=== PATIENT | female | born 1990 ===

== ENCOUNTER 2023-06-23 19:39 | Emergency (ER) | payer MEDICAID, SELFPAY ==
[2023-06-23 19:48] VITALS: BP 108/70; PULSE 80; RESP 20; TEMP 36.3; O2SAT 98; BMI 33.2
[2023-06-23 20:23] VITALS: BP 114/70; PULSE 84; RESP 18; O2SAT 99
--- NOTE | 2023-06-23 20:29 | ED.GENADULT ---
HPI - General Adult General Chief complaint: Abdominal Pain Stated complaint: Abdominal pain, nausea Time Seen by Provider: 06/23/23 20:25 History of Present Illness HPI narrative: Pt aox4, ABCs intact. Patient c/o generalized malaise, chills , and abdominal pain that is intermittent but worsening in severity over the past couple of days. Patient states that she has lupus and recently moved here and has not been seen by a doctor in a while as her lupus was in remission. 32-year-old woman presenting to the emergency department with complaint of just not feeling very good. She is not short of breath. Not been coughing. Has been feeling chilled but admits that has been feeling intermittently chilled since she moved to [place] from [facility] in January or so of this year. Underlying history of lupus and is worried that this might be flaring. She has not yet established primary care. She has not received treatment in any form for lupus over the last year. Her treatments had been varied. She has not been having any joint pain. No rashes. No diarrhea. She is experiencing some nausea though. Was a little lightheaded earlier today without palpitations. No dysuria frequency urgency. Having a little heartburn. She would appreciate IV fluids. Related Data Previous Rx's Medication Instructions Recorded omeprazole 40 mg capsule,delayed 40 mg PO DAILY #30 caps 06/23/23 release ondansetron 4 mg disintegrating 4 mg PO Q4-6H PRN nausea and 06/24/23 tablet vomiting #15 tabs Allergies Allergy/AdvReac Type Severity Reaction Status Date / Time No Known Drug Allergies Allergy Verified 06/23/23 19:52 Review of Systems Status of ROS: Reports: 6 or more systems reviewed and unremarkable except as noted in History and below [facility] Social History Smoking Status: Never smoker Do you use any of these nicotine containing products: None Second hand tobacco smoke exposure: Yes How often do you have a drink containing alcohol: never How often do you have six or more drinks on one occasion: Never AUDIT-C Alcohol total score: 0 Non-prescribed substance use: denies use service: No Exam Narrative: Exam Narrative: Pleasant. NAD. Breathing easily. Lungs are clear. Cranial nerves 2-12 intact. She is moving all extremities without difficulty. Do not appreciate any joint swelling or erythema. There is no peripheral edema. Well-perfused. Heart in regular rate and rhythm. Abdomen with normoactive bowel sounds is soft and nontender. Seems generally a little fatigued. Const: Vital Signs, click to edit/add: Vital Signs - 24 hr 06/23/23 19:48 06/23/23 20:23 06/23/23 23:37 Temperature 97.3 F L 98.1 F Pulse Rate [Pulse Oximeter] 80 84 82 Respiratory Rate 20 18 16 Blood Pressure [Ri ght Upper Arm] 108/70 114/70 115/81 Pulse Oximetry 98 99 99 Oxygen Delivery Me thod Room Air Room Air Room Air Documenting provider has reviewed patient's vital signs: yes Course Vital Signs Vital signs: Initial Vital Signs Temperature 97.3 F L 06/23/23 19:48 Temperature Source Temporal Artery Scan 06/23/23 19:48 Pulse Rate 80 06/23/23 19:48 Pulse Strength 3+ Normal 06/23/23 19:48 Respiratory Rate 20 06/23/23 19:48 Blood Pressure 108/70 06/23/23 19:48 Blood Pressure Mean 82 06/23/23 19:48 Blood Pressure Position Sitting 06/23/23 19:48 Pulse Oximetry 98 06/23/23 19:48 Oxygen Delivery Method Room Air 06/23/23 19:48 Vital Signs Temperature 97.3 F L 06/23/23 19:48 Pulse Rate 80 06/23/23 19:48 Respiratory Rate 20 06/23/23 19:48 Blood Pressure 108/70 06/23/23 19:48 Pulse Oximetry 98 06/23/23 19:48 Oxygen Delivery Method Room Air 06/23/23 19:48 Temperature 98.1 F 06/23/23 23:37 Pulse Rate 82 06/23/23 23:37 Respiratory Rate 16 06/23/23 23:37 Blood Pressure 115/81 06/23/23 23:37 Pulse Oximetry 99 06/23/23 23:37 Oxygen Delivery Method Room Air 06/23/23 23:37 Medical Decision Making MDM Narrative Medical decision making narrative: Given community prevalence, I would screen for COVID at a minimum. She would like some fluids we can certainly do that. Will take this opportunity to look inflammatory markers and other indication of infection or lupus flare. Check urinalysis though without symptoms would await culture for any treatment. Otherwise nonspecific viral illness. She describes being worried about lupus flare and whether not she could receive some medications for this. Then complained of some headache so was given ketorolac. On reassessment this did improve her headache but still with some heartburn symptoms. Has been ordered for GI cocktail equivalent. On further reflection, she thinks that she feels like this whenever she drinks water from what sounds to be recently softened water in the home where she is staying. I cannot verify any sort of lupus flare here. Differential to also have included gallbladder or pancreatic disease. This is not seem to be the case or least not represented in the labs. Significant ketones however were present in urine. No labs to prompt further evaluation or imaging at this time and relatively repeat benign exam Did appear overall improved with hydration during time in the emergency department. Lab Data Lab results reviewed: Yes I reviewed the patient's lab results Labs: Lab Results 06/23/23 06/23/23 06/23/23 Range/Units 20:47 21:02 21:20 WBC 7.73 (4.50-11.00) K/uL RBC 5.21 H (4.00-5.20) m/uL Hgb 13.8 (12.0-16.0) gm/dL Hct 42.4 (33.0-51.0) % MCV 81 (80-100) fL MCH 27 (26-34) pg MCHC 33 (32-36) gm/dL RDW Coeff of Francisco 13.1 (11.5-15.5) % Plt Count 352 (140-440) K/uL Neut % (Auto) 59.7 (42.0-72.0) % Lymph % (Auto) 28.3 (20-44) % [place] % (Auto) 8.9 (0.0-11.0) % Eos % (Auto) 2.7 (0.0-7.0) % Baso % (Auto) 0.3 (0.0-3.0) % Neut # (Auto) 4.61 (1.7-7.0) K/uL Lymph # (Auto) 2.19 (0.90-2.90) K/uL [place] # (Auto) 0.70 (0.00-0.90) K/UL Eos # (Auto) 0.21 (0.00-0.50) K/uL Baso # (Auto) 0.02 (0.00-0.30) K/uL Abs Immat Gran (auto) 0.01 (0.00-0.30) K/uL Imm/Tot Granulo (auto) 0.1 % ESR 12 (2-20) mm/hr Sodium 138 (135-149) mmol/L Potassium 3.8 (3.6-5.1) mmol/L Chloride 102 (96-114) mmol/L Carbon Dioxide 25 (20-32) mmol/L Anion Gap 11 (7-15) mEq/L BUN 12 (5-24) mg/dL Creatinine 0.7 (0.5-1.5) mg/dL Estimated Creat Clear 102.86 Estimated GFR 117 ml/min Glucose 81 (60-115) mg/dL Calcium 10.2 (8.4-10.6) mg/dL Total Bilirubin 0.7 (0.1-1.5) mg/dL Direct Bilirubin 0.0 (0.0-0.5) mg/dL AST 37 H (12-35) U/L ALT 21 (4-35) U/L Alkaline Phosphatase 100 (40-150) U/L C-Reactive Protein 1.4 H (0.5-1.0) mg/dL Total Protein 8.5 H (6.0-8.3) g/dL Albumin 4.6 (3.3-5.0) g/dL Urine Color Yellow (Yellow) Urine Appearance Clear (Clear) Urine pH 6.5 (5.0-8.5) Ur Specific [place] 1.015 (1.000-1.030) Urine Protein Negative (Negative) Urine Glucose (UA) Negative (Negative) Urine Ketones 3+ A (Negative) Urine Blood Trace-lysed A (Negative) Urine Nitrite Negative (Negative) Urine Bilirubin Negative (Negative) Urine Urobilinogen 4.0 A (0.2-1.0) Ur Leukocyte Esterase Negative (Negative) Urine RBC 0-2 (0-2) Urine WBC 0-2 (0-5) Ur Squamous Epith Cells Moderate A (None-Few) Urine Bacteria None (None) SARS-CoV-2 (PCR) Negative SARS-CoV-2 (Negative) Influenza Type A (PCR) Negative PCR FLU A (Negative) Influenza Type B (PCR) Negative PCR FLU B (Negative) Lab Acknowledgement 06/23/23 Range/Units 22:01 WBC (4.50-11.00) K/uL RBC (4.00-5.20) m/uL Hgb (12.0-16.0) gm/dL Hct (33.0-51.0) % MCV (80-100) fL MCH (26-34) pg MCHC (32-36) gm/dL RDW Coeff of Francisco (11.5-15.5) % Plt Count (140-440) K/uL Neut % (Auto) (42.0-72.0) % Lymph % (Auto) (20-44) % [place] % (Auto) (0.0-11.0) % Eos % (Auto) (0.0-7.0) % Baso % (Auto) (0.0-3.0) % Neut # (Auto) (1.7-7.0) K/uL Lymph # (Auto) (0.90-2.90) K/uL [place] # (Auto) (0.00-0.90) K/UL Eos # (Auto) (0.00-0.50) K/uL Baso # (Auto) (0.00-0.30) K/uL Abs Immat Gran (auto) (0.00-0.30) K/uL Imm/Tot Granulo (auto) % ESR (2-20) mm/hr Sodium (135-149) mmol/L Potassium (3.6-5.1) mmol/L Chloride (96-114) mmol/L Carbon Dioxide (20-32) mmol/L Anion Gap (7-15) mEq/L BUN (5-24) mg/dL Creatinine (0.5-1.5) mg/dL Estimated Creat Clear Estimated GFR ml/min Glucose (60-115) mg/dL Calcium (8.4-10.6) mg/dL Total Bilirubin (0.1-1.5) mg/dL Direct Bilirubin (0.0-0.5) mg/dL AST (12-35) U/L ALT (4-35) U/L Alkaline Phosphatase (40-150) U/L C-Reactive Protein (0.5-1.0) mg/dL Total Protein (6.0-8.3) g/dL Albumin (3.3-5.0) g/dL Urine Color (Yellow) Urine Appearance (Clear) Urine pH (5.0-8.5) Ur Specific [place] (1.000-1.030) Urine Protein (Negative) Urine Glucose (UA) (Negative) Urine Ketones (Negative) Urine Blood (Negative) Urine Nitrite (Negative) Urine Bilirubin (Negative) Urine Urobilinogen (0.2-1.0) Ur Leukocyte Esterase (Negative) Urine RBC (0-2) Urine WBC (0-5) Ur Squamous Epith Cells (None-Few) Urine Bacteria (None) SARS-CoV-2 (PCR) (Negative) Influenza Type A (PCR) (Negative) Influenza Type B (PCR) (Negative) Lab Acknowledgement Test Added Discharge Plan Discharge Clinical Impression: Malaise, Heartburn Patient Disposition: Home w/ Parent or Adult Condition: Improved Additional Instructions: It sounds like you might need a different source of drinking water. Perhaps you are more sensitive. Prescribing omeprazole for now. Take this for least 2 weeks and then re-evaluate You can take liquid antacid/anti-gas medication for breakthrough heartburn like symptoms. This is available [id number]. Zofran if needed for nausea. I am glad you have an upcoming appointment to establish primary care. Of course if you clearly are having a flare of lupus, you may need to return. Prescriptions: New omeprazole 40 mg capsule,delayed release(DR/EC) 40 mg PO DAILY Qty: 30 0RF ondansetron 4 mg tablet,disintegrating 4 mg PO Q4-6H PRN (Reason: nausea and vomiting) Qty: 15 0RF Follow Up/Referrals: Provider,Not a Local [Primary Care Provider] - Stand Alone Forms: [facility] Info Instructions
[2023-06-23 21:11] LABS: Basophils Absolute Auto 0.02 K/uL (0.00-0.30); Basophils Percent Auto 0.3 % (0.0-3.0); Eosinophils Absolute Auto 0.21 K/uL (0.00-0.50); Eosinophils Percent Auto 2.7 % (0.0-7.0); Hematocrit 42.4 % (33.0-51.0); Hemoglobin* 13.8 gm/dL (12.0-16.0); Immature Granulocytes Abs Auto 0.01 K/uL (0.00-0.30); Immature Granulocytes Pct Auto 0.1 %; Lymphocytes Absolute Auto 2.19 K/uL (0.90-2.90); Lymphocytes Percent Auto 28.3 % (20-44); Mean Corpuscular HGB Conc 33 gm/dL (32-36); Mean Corpuscular Hemoglobin 27 pg (26-34); Mean Corpuscular Volume 81 fL (80-100); Monocytes Percent Auto 8.9 % (0.0-11.0); Neutrophils Absolute Auto 4.61 K/uL (1.7-7.0); Neutrophils Percent Auto 59.7 % (42.0-72.0); Platelet Count* 352 K/uL (140-440); RDW Coefficient of Variation % 13.1 % (11.5-15.5); Red Blood Count 5.21 m/uL (4.00-5.20); White Blood Count* 7.73 K/uL (4.50-11.00)
[2023-06-23 21:12] LABS: Slide Review Reflex No
[2023-06-23] MEDS: 0.9 % SODIUM CHLORIDE 1000 ml 1,000 ML 2000 ML IV (21:12)
[2023-06-23] MEDS: ONDANSETRON 2 MG/ML inj 4 MG IVP (21:14)
[2023-06-23 21:29] LABS: Appearance Urine Clear (Clear); Bilirubin Urine Negative (Negative); Blood Urine Trace-lysed (Negative); Color Urine Yellow (Yellow); Glucose Urine Negative (Negative); Ketones Urine 3+ (Negative); Leukocyte Esterase Urine Negative (Negative); Nitrite Urine Negative (Negative); Protein Urine Negative (Negative); Specific Gravity Urine 1.015 (1.000-1.030); pH Urine 6.5 (5.0-8.5)
[2023-06-23 21:30] LABS: Chloride* 102 mmol/L (96-114); Potassium* 3.8 mmol/L (3.6-5.1); Sodium* 138 mmol/L (135-149)
[2023-06-23 21:31] LABS: PCR FLU A Negative PCR FLU A (Negative); PCR FLU B Negative PCR FLU B (Negative)
[2023-06-23 21:33] LABS: Creatinine* 0.7 mg/dL (0.5-1.5); Est. Creatinine Clearance* 102.86; Estimated Glomerular Filt Rate 117 ml/min
[2023-06-23 21:34] LABS: Anion Gap 11 mEq/L (7-15); Blood Urea Nitrogen* 12 mg/dL (5-24); Calcium* 10.2 mg/dL (8.4-10.6); Carbon Dioxide* 25 mmol/L (20-32); Glucose* 81 mg/dL (60-115)
[2023-06-23 21:37] LABS: C Reactive Protein* 1.4 mg/dL (0.5-1.0)
[2023-06-23 21:40] LABS: RBC Urine 0-2 (0-2); Squamous Epithelial Cell Urine Moderate (None-Few); WBC Urine 0-2 (0-5)
[2023-06-23 21:42] LABS: SARS PCR* Negative SARS-CoV-2 (Negative)
[2023-06-23 21:48] LABS: Erythrocyte SedimentationRate* 12 mm/hr (2-20)
[2023-06-23 22:30] LABS: Alanine Aminotransferase* 21 U/L (4-35); Albumin* 4.6 g/dL (3.3-5.0); Alkaline Phosphatase* 100 U/L (40-150); Aspartate Amino Transferase* 37 U/L (12-35); Bilirubin Total* 0.7 mg/dL (0.1-1.5); Total Protein* 8.5 g/dL (6.0-8.3)
[2023-06-23] MEDS: KETOROLAC 30 MG/ML inj IVP (22:42)
[2023-06-23 23:37] VITALS: BP 115/81; PULSE 82; RESP 16; TEMP 36.7; O2SAT 99
--- NOTE | 2023-06-23 23:37 | PC.NURSE ---
Pt states abdominal pain still there, rates 3/10. Also c/o headache and heartburn. Pt requests something for the abdominal pain to take at home and also for the heartburn tums don't work.
[2023-06-23] MEDS: lidocaine HCL 4 % TOP SOLN 50 ML BOTTLE 7.5 ML PO (23:57)
[2023-06-23] MEDS: MAG HYDROX/ALUMINUM HYD/SIMETH 30 ML ORAL.SUSP PO (23:57)
== END 2023-06-24 00:16 | disposition home or self-care (01) ==
PROVIDERS: Emergency Provider Family Medicine
DX: R53.81 Other malaise (principal); R12 Heartburn
CPT/HCPCS: 36415; 80048; 80076; 81001; 85025; 85651; 86140; 87631; 99284; A9270; J1885; J2405; J7030